=== PATIENT | male | born 1950 | race Caucasian/White ===

== ENCOUNTER 2018-07-22 13:08 | Outpatient (CLI) | payer MEDICARE, SELFPAY | END 2018-07-22 13:28 | PROVIDERS: PCP Specialist/Technologist Athletic Trainer; Visit Provider Specialist/Technologist Athletic Trainer | DX: N39.0 Urinary tract infection, site not specified (principal) | CPT/HCPCS: 87086 ==

== ENCOUNTER 2018-08-03 11:40 | Outpatient (CLI) | payer MEDICARE, SELFPAY ==
--- NOTE | 2018-08-03 10:57 | DI.US_ITS ---
SYMPTOM/DIAGNOSIS: LT LEG SWELLING, M79.89, OSSEOUS METASTASIS, C79.51 LEFT LOWER EXTREMITY ULTRASOUND: The deep veins of the left lower extremity show normal compression, augmentation and color flow. No evidence of a deep venous thrombus is identified. The visualized portions of the common femoral vein are patent. No focal fluid collection is seen in the soft tissues. IMPRESSION: No evidence of a left lower extremity deep venous thrombus.
== END 2018-08-03 12:00 ==
PROVIDERS: PCP Specialist/Technologist Athletic Trainer; Visit Provider Radiology Radiation Oncology
DX: R22.42 Localized swelling, mass and lump, left lower limb (principal); M79.89 Other specified soft tissue disorders; C79.51 Secondary malignant neoplasm of bone
CPT/HCPCS: 93971

== ENCOUNTER 2019-01-22 19:39 | Emergency (ER) | payer MEDICARE, SELFPAY ==
[2019-01-22] VITALS (8 sets, daily range): BP systolic 135–183; BP diastolic 41–97; PULSE 68–95; RESP 13–24; O2SAT 91–95
--- NOTE | 2019-01-22 19:52 | DI.CT_ITS ---
SYMPTOM/DIAGNOSIS: RLQ ABD PAIN, NOTABLY TENDER ABDOMEN AND PELVIC CT: CT examination of the abdomen and pelvis was performed with intravenous infusion of 100 cc's of Omnipaque 350. Images obtained through the lung bases show multiple rounded intrapulmonary nodules which were not present on previous CT of 03/02/18 and the findings are highly suggestive of metastatic disease. Liver shows diffuse heterogeneous attenuation with marked nodularity of the contour, these findings were not present on the previous examination and may represent metastatic disease or cirrhosis. Previously noted L 5 vertebral body lesion again seen, grossly unchanged. A right superior pubic ramus lesion is new since the previous examination and measures up to about 4 cm. in diameter with marked bony destruction. Adrenals and kidneys are unremarkable. Pancreas appears intact. No biliary dilatation is seen. No gross bowel obstruction identified. No significant vascular abnormality is seen. CONCLUSION: 1. New intrapulmonary metastatic disease. 2. New bony metastasis of superior pubic ramus, old bony metastases are again noted. 3. Marked interval change in appearance of liver since 03/02/18, diffuse metastatic disease versus cirrhosis.
[2019-01-22] MEDS: Normal Saline 1,000 ML 1000 ML IV (20:08)
[2019-01-22 20:25] LABS: Abs Immature Grans 0.06 k/cumm (0.0-0.09); Absolute Basophil Count 0.03 k/cumm (0.0-0.2); Absolute Eosinophil Count 0.12 k/cumm (0.0-0.7); Absolute Lymphocyte Count 1.17 k/cumm (1.2-3.4); Absolute Monocyte Count 1.29 k/cumm (0.11-0.7); Absolute Neutrophil Count 4.85 k/cumm (1.2-6.7); Basophils % 0.4; Eosinophils % 1.6; HCT 43.8 % (40.0-50.0); HGB 14.3 g/dL (13.5-17.5); Immature Grans % 0.8; Lymphocytes % 15.6; Mean Corp. HGB Concentration 32.6 g/dL (32.0-36.0); Mean Corpuscular Hemoglobin 31.3 pg (27.0-33.0); Mean Corpuscular Volume 95.8 fL (80-95); Mean Platelet Volume 13.1 fL (8.0-11.0); Monocytes % 17.2; Neutrophils % 64.4; Platelet Count 197 x1000/uL (130-400); RBC 4.57 m/cumm (4.50-6.00); RBC Distribution Width 14.4 % (11.8-14.1); White Blood Cell Count 7.52 k/cumm (4.4-10.8)
[2019-01-22 20:32] LABS: ALT 70 U/L (12-78); AST 203 U/L (15-37); Albumin 3.3 g/dL (3.4-5.0); Alkaline Phosphatase 328 U/L (46-116); Anion Gap 11.2 mmol/L (3-11); BUN 17 mg/dL (7-18); Bilirubin, Total 0.5 mg/dL (0.2-1.0); CO2 26.8 mmol/L (21.0-32.0); CREATININE 1.12 mg/dL (0.70-1.30); Calcium 9.9 mg/dL (8.5-10.1); Chloride 98 mmol/L (98-107); Glucose 190 mg/dL (70-100); Lipase 118 U/L (73-393); Potassium 4.5 mmol/L (3.5-5.1); Sodium 136 mmol/L (136-145); Total Protein 8.5 g/dL (6.4-8.2)
[2019-01-22 20:35] LABS: Troponin I 0.03 ng/mL (0.00-0.06)
--- NOTE | 2019-01-22 20:45 | W.ED.GENAD ---
Discharge Plan Disposition Patient Disposition: HOME Condition: Good Discharge Details Chief Complaint: Abd Prob Clinical Impression: Bone mass, Metastasis, Bony pelvic pain Primary Care Provider: Mike Covington ED Provider: Cristobal Rodríguez Home Meds and New Rx's Prescriptions: New lidocaine [Lidoderm] 1 PATCH patch 1 patch Topical Q24H Qty: 4 RF: 0 cephalexin [Keflex] 500 mg capsule 500 mg PO BID Qty: 14 RF: 0 No Action metformin 500 MG tablet 500 mg PO BID RF: 0 fish oil-dha-epa 1 EACH capsule 1 ea PO DAILY RF: 0 allopurinol 100 MG tablet 100 mg PO BID RF: 0 albuterol sulfate [ProAir HFA] 8.5 GM HFA aerosol inhaler 2 puff Inhalation Q4H PRN RF: 0 aspirin 325 MG tablet 325 mg PO DAILY RF: 0 insulin detemir U-100 [Levemir U-100 Insulin] 100 UNIT/ML solution 40 units SQ HS RF: 0 lisinopril 20 mg Tablet 20 mg PO DAILY RF: 0 tamsulosin [Flomax] 0.4 mg Capsule 0.4 mg PO DAILY RF: 0 oxycodone 7.5 mg Tablet, Oral Only 7.5 mg PO DAILY PRNRF: 0 Discharge Instructions Additional Instructions: Contact your oncologist immediately on Thursday morning to discuss the findings of the new pelvic mass. Please use the Lidoderm patch as directed. If you notice any worsening of your symptoms, or any new symptoms such as vomiting, diarrhea, fever, chills, shortness of breath, chest pain, numbness, weakness, or fainting , please return immediately to the emergency department for reevaluation. Please follow up with your primary care provider as soon as possible for reassessment and reevaluation. As always, it was a pleasure participating in your medical care today. Referrals: Mike Covington [Primary Care Provider] - Medical Decision Making This is a 68-year-old male with a past medical history of gout, diabetes, hypertension, who chronically takes oxycodone, who presents today for evaluation of right lower quadrant pain. The patient states that the pain has been going on for the last 8 weeks, however it notably worsened in the last few days. He denies any nausea, vomiting or diarrhea. No concerning red flags of hematuria, frequency, hematochezia or hematemesis. Physical exam demonstrates notable reproducible tenderness in the right lower quadrant. Concerning for appendicitis versus other acute abdominal pathology. We will get a CT scan to evaluate for acute process. Patient is refusing anything for pain at this time. Hernia is also on the differential. I will also preform a laboratory workup in addition to imaging analysis. 10:17 p.m. Patient's laboratory workup has returned and is relatively benign. No significant white count, bandemia, or other abnormality. Electrolytes are well within normal limits. Alk phos is elevated at 328 which is higher than normal for the patient, AST is also elevated at 203, bilirubin is normal though. Lipase normal. Urinalysis does show questionable urinary tract infection. We will give Keflex for treatment of this. Troponin is within normal limits, may continues to deny any chest pain shortness of breath. CT scan results done, initial CT was negative for any acute process in the lower pelvic region, however review with radiologist did bring the discovery of right pubic rami mass, which appears to be acute. Reevaluation does confirm that this is the location of the patient's pain on repeat physical exam. The patient states that he does have a history of tumors in the spine in the past, however these were treated with radiation there were no metastases on reevaluation. This would be an acute component. Additionally there appear to be multiple new metastases in the lungs. The patient remaining hemodynamically stable, and pain well controlled, I do feel that he can be safely discharged home however he needs close prompt follow-up with oncology. He does have the number for his oncologist, and over in addition to this we will set up a referral for review by the oncology team. I discussed the importance of prompt follow-up, as well as red flags which to return the patient understands. I have extensively reviewed the treatment plan and discharge instructions with the patient and their family. I have addressed all patient concerns at this time. The patient and family was made aware of what symptoms to monitor for that would warrant a return to the emergency department. Discussed the plan with the patient and family, they demonstrate verbal understanding and agreement with our assessment and plan at this time. EKG 19: 57 Rate 81, VT 222, QTc 476, QRS 154, sinus rhythm with a first-degree AV block and a right bundle branch block with a left axis bifascicular block. 1 mm of elevation in V3 4, no ST depressions, inverted T wave in V1 V2, all consistent with right bundle branch block. TECHNIQUE: Imaging protocol: Axial computed tomography images of the abdomen and pelvis with intravenous contrast. Coronal and sagittal reformatted images were created and reviewed. COMPARISON: CT CHEST ABD PELVIS WITH CONTRAST 03/02/2018 10:35 AM FINDINGS: Limitations: The examination is technically less than ideal due to patient body habitus. Lower thorax: The heart demonstrates mild diffuse enlargement.There has been a TAVR. There is calcification of the mitral valve annulus.There are coronary artery calcifications. There are new noncalcified pulmonary nodules in the lung bases. The largest measures approximately 10 mm. ABDOMEN: Liver: The liver demonstrates a diffusely nodular contour and is heterogeneous. Gallbladder and bile ducts: There is enhancement of the gallbladder wall with no gallbladder distention, pericholecystic stranding or calcified gallstones.There is no evidence of biliary ductal dilation. Pancreas: Normal. No ductal dilation. Spleen: Normal. No splenomegaly. Adrenals: Normal. No mass. Kidneys and ureters: Normal. No hydronephrosis. Stomach and bowel: There is no evidence of intestinal obstruction. No bowel wall thickening.There is no evidence of diverticulitis. Appendix: The appendix is not visualized, however, there are no pericecal inflammatory changes. PELVIS: Bladder: Unremarkable as visualized. Reproductive: Unremarkable as visualized. ABDOMEN and PELVIS: Intraperitoneal space: There is no free intraperitoneal air. There is no evidence of focal rimenhancing encapsulated fluid collections to suggest drainable abscess formation. Bones/joints: There is redemonstration of a destructive lesion in the L5 vertebral body and left pedicle. There is now a nondisplaced fracture through the right pedicle which may be pathologic. There is an old compression fracture with methacrylate of L3. There is a compression fracture of the superior endplate of L1 which is new in comparison to 2018 but is of indeterminate age. Soft tissues: Unremarkable. Vasculature: TheThe aorta is normal in caliber.The vasculature demonstrates diffuse marked atherosclerotic calcification. There are bilateral iliac artery stents. Lymph nodes: Normal. No enlarged lymph nodes. IMPRESSION: 1. The appendix is not visualized, however, there are no pericecal inflammatory changes. 2. There is no evidence of bowel obstruction, abscess or free air. 3. The liver demonstrates a diffusely nodular contour and is heterogeneous. Differential considerations include cirrhosis and metastatic disease. 4. There are new noncalcified pulmonary nodules in the lung bases strongly suggestive of metastatic disease. 5. Enhancement of the gallbladder wall with no additional findings to suggest acute cholecystitis. This is of uncertain etiology and clinical significance and could be related to adjacent hepatic disease. If there is clinical concern for cholecystitis, a gallbladder ultrasound or DISIDA scan is recommended. 6. Redemonstration of a destructive lesion in the L5 vertebral body and left pedicle. There is now a nondisplaced fracture through the right pedicle which may be pathologic. Interval development of a compression fracture of the superior endplate of L1 which is of indeterminate age. Remainder of non-emergent findings as described above. Thank you for allowing us to participate in the care of your patient. Dictated and Authenticated by: Ivana Moran MD HPI General Date/Time Provider Initiated Documentation: 01/22/19 19:52. HPI Narrative: This is a 68-year-old male with a past medical history of gout, asthma, aortic stenosis, diabetes, who presents today for right lower quadrant pain and nausea for the last 8 weeks. The patient states that symptoms are aching and nature, with no radiation to any other part of his abdomen. Worse when he stands upright. Improved by nothing. He has no associated diarrhea, or vomiting. He has been eating and drinking well. He denies any relation to food. He does have a history of an umbilical hernia that was surgically repaired years ago in [place]. He denies any hematochezia, hematemesis, melena, acholic stool, fever, hematuria, increased urinary frequency, chills, chest pain, shortness of breath. He has no other complaints at this time. No other modifying factors. He does have follow-up with his primary care provider in the next few weeks, but nothing soon. Related Data Home Medications Medication Instructions Recorded Confirmed fish oil-dha-epa 1 ea PO DAILY NS 06/28/15 03/11/18 metformin 500 mg PO BID tab-cap NS 06/28/15 03/11/18 insulin detemir U-100 [Levemir 40 units SQ HS 08/02/15 03/11/18 U-100 Insulin] albuterol sulfate [Proair Hfa] 2 puff INHALATION Q4H PRN inhaler 05/20/18 allopurinol 100 mg PO BID tab-cap 05/20/18 aspirin 325 mg PO DAILY tab-cap 05/24/18 cephalexin [Keflex] 500 mg PO BID #14 cap 01/22/19 lidocaine [Lidoderm] 1 patch TOPICAL Q24H #4 patch 01/22/19 lisinopril 20 mg PO DAILY 01/22/19 01/22/19 oxycodone 7.5 mg PO DAILY PRN 01/22/19 01/22/19 tamsulosin [Flomax] 0.4 mg PO DAILY 01/22/19 01/22/19 Previous Rx's Medication Instructions Recorded cephalexin [Keflex] 500 mg PO BID #14 cap 01/22/19 lidocaine [Lidoderm] 1 patch TOPICAL Q24H #4 patch 01/22/19 Allergies Allergy/AdvReac Type Severity Reaction Status Date / Time codeine Allergy Mild bladder Unverified 01/22/19 19:51 problems morphine Allergy Mild Hives Unverified 01/22/19 19:51 atenolol Allergy Unknown Unverified 01/22/19 19:51 diltiazem Allergy Unknown Unverified 01/22/19 19:51 General Stated Complaint: Abd Prob DANIELLE: 3 PFSH Medical History Aortic stenosis Aortoiliac occlusive disease Atherosclerosis of arteries of extremities BPH (benign prostatic hyperplasia) Bilateral leg edema Bradycardia CAD (coronary artery disease) COPD (chronic obstructive pulmonary disease) Conjunctival granuloma Diabetes mellitus Fatty liver disease, nonalcoholic GERD (gastroesophageal reflux disease) Gout HTN (hypertension) History of gallbladder disease History of seizures History of tobacco abuse Hyperlipidemia Incipient cataract Low back pain Lumbar epidural mass Male erectile dysfunction Metastasis to spinal column Metastatic bone cancer Neurogenic claudication STEPHEN (obstructive sleep apnea) PAF (paroxysmal atrial fibrillation) PVD (peripheral vascular disease) Pinguecula Proptosis S/P TAVR (transcatheter aortic valve replacement) Sleep disturbance Spinal stenosis Syncope and collapse Tremor Surgical History H/O hernia repair (Chronic) Hx of CABG (Chronic) TVAR Social History Smoking/Tobacco Use Status: Current every day Tobacco Type: smokeless tobacco Alcohol Intake: current Alcohol Intake frequency: holidays/special occasions only Alcohol type: wine Drug use: Never Do you feel safe in your relationship?: Yes Exam Narrative Exam Narrative: 1.Const: Well-nourished, Well-developed, appearing stated age 2.Eyes: PERRL, no conjunctival injection, and symmetrical lids. 3.ENT: Atraumatic external nose and ears. Moist MM. Neck: Symmetric, trachea midline, No thyromegaly. 4.CVS: +S1/S2, No murmurs or gallops. Peripheral pulses 2+ and equal in all extremities. Brisk capillary refill in all extremities. 5.RESP: Unlabored respiratory effort. Clear to auscultation bilaterally. No wheezes rales or rhonchi 6.GI: Soft, notable tenderness in the right lower quadrant. No pain in the right upper, left upper left lower. No guarding or rebound aside for mild rebound in the right lower quadrant. No evidence of notable herniation. 7.MSK: Normocephalic/Atraumatic, Extremities w/o deformity or ttp No cyanosis or clubbing, Normal movement of all extremities including the lower extremities below the point of pain. 8.Skin: Warm, Dry. No rashes or lesions. 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 Sensation grossly intact, no focal neurologic deficits. 10.Psych: (AAO) x3. Appropriate mood and affect Course Vital Signs Pulse 95 H 01/22/19 19:45 Respiratory Rate 24 01/22/19 19:45 Blood Pressure 183/66 H 01/22/19 19:45 Pulse Oximetry 95 01/22/19 19:45 Pulse 95 H 01/22/19 19:45 Respiratory Rate 24 01/22/19 19:45 Respiratory Effort 01/22/19 19:48 Blood Pressure 183/66 H 01/22/19 19:45 Pulse Oximetry 95 01/22/19 19:45 Pain Level 10 01/22/19 19:45 Lab/Test Results Lab/Test Results: Laboratory Tests Range/Units 01/22/19 01/22/19 01/22/19 20:00 20:00 20:00 WBC (4.4-10.8) k/cumm 7.52 RBC (4.50-6.00) m/cumm 4.57 Hgb (13.5-17.5) g/dL 14.3 Hct (40.0-50.0) % 43.8 MCV (80-95) fL 95.8 H MCH (27.0-33.0) pg 31.3 MCHC (32.0-36.0) g/dL 32.6 RDW (11.8-14.1) % 14.4 H Plt Count (130-400) x1000/uL 197 MPV (8.0-11.0) fL 13.1 H Immature Gran % 0.8 Neutrophils % 64.4 Lymphocytes % 15.6 Monocytes % 17.2 Eosinophils % 1.6 Basophils % 0.4 Absolute Neutrophils (1.2-6.7) k/cumm 4.85 Absolute Lymphocytes (1.2-3.4) k/cumm 1.17 L Absolute Monocytes (0.11-0.7) k/cumm 1.29 H Absolute Eosinophils (0.0-0.7) k/cumm 0.12 Absolute Basophils (0.0-0.2) k/cumm 0.03 Sodium (136-145) mmol/L 136 Potassium (3.5-5.1) mmol/L 4.5 Chloride (98-107) mmol/L 98 Carbon Dioxide (21.0-32.0) mmol/L 26.8 Anion Gap (3-11) mmol/L 11.2 H BUN (7-18) mg/dL 17 Creatinine (0.70-1.30) mg/dL 1.12 Estimated GFR/1.73 m2 (mL/min/1.73m2) >= 60.00 Glucose (70-100) mg/dL 190 H Calcium (8.5-10.1) mg/dL 9.9 Total Bilirubin (0.2-1.0) mg/dL 0.5 AST (15-37) U/L 203 H ALT (12-78) U/L 70 Alkaline Phosphatase (46-116) U/L 328 H Troponin I (0.00-0.06) ng/mL 0.03 Total Protein (6.4-8.2) g/dL 8.5 H Albumin (3.4-5.0) g/dL 3.3 L Lipase (73-393) U/L 118
[2019-01-22] MEDS: Omnipaque 350 MG/ML 100 ML BTL IJ (21:05)
[2019-01-22 21:21] LABS: Bilirubin Negative (Negative); Blood Negative (Negative); Clarity Clear; Glucose Negative (Negative); Ketones Trace mg/dL (Negative); Leukocyte Esterase Small (Negative); Nitrite Negative (Negative); Specific Gravity 1.025 (1.005-1.025); Urobilinogen 0.2 EU/dL (Up TO 0.2); pH 5.5 (5-8)
--- NOTE | 2019-01-22 21:40 | DI.VRAD_ITS ---
Addendum created by Ivana Moran MD on 01/22/2019 9:54:49 PM EDT The examination was reviewed with Dr. Rodríguez 01/22/2019 9:53 PM EDT. The patient states that he has had no workup for metastatic disease and no known primary tumor. The following should have been included in the body and impression of the report: There is a lytic lesion in the right superior pubic ramus with a soft tissue component measuring approximately 4 cm maximal short axis dimension by 5.6 cm long axis dimension (79/4). The appearance would be consistent with metastatic disease. The gallbladder wall is not thickened but demonstrates mild enhancement. This could be related to liver disease. The appearance of the liver is new in comparison to 2018 and could represent metastatic disease or cirrhosis. There are new multiple pulmonary nodules consistent with metastases. Initial report created on 01/22/2019 9:39:33 PM EDT EXAM: CT Abdomen and Pelvis With Contrast EXAM DATE/TIME: 01/22/2019 7:54 PM CLINICAL HISTORY: 68 years old, male; Pain; Abdominal pain; Localized; Right lower quadrant (rlq); Patient HX: Rlq abdominal pain for 8 weeks, notable tender. History of bone metastases. TECHNIQUE: Imaging protocol: Axial computed tomography images of the abdomen and pelvis with intravenous contrast. Coronal and sagittal reformatted images were created and reviewed. COMPARISON: CT CHEST ABD PELVIS WITH CONTRAST 03/02/2018 10:35 AM FINDINGS: Limitations: The examination is technically less than ideal due to patient body habitus. Lower thorax: The heart demonstrates mild diffuse enlargement.There has been a TAVR. There is calcification of the mitral valve annulus.There are coronary artery calcifications. There are new noncalcified pulmonary nodules in the lung bases. The largest measures approximately 10 mm. ABDOMEN: Liver: The liver demonstrates a diffusely nodular contour and is heterogeneous. Gallbladder and bile ducts: There is enhancement of the gallbladder wall with no gallbladder distention, pericholecystic stranding or calcified gallstones.There is no evidence of biliary ductal dilation. Pancreas: Normal. No ductal dilation. Spleen: Normal. No splenomegaly. Adrenals: Normal. No mass. Kidneys and ureters: Normal. No hydronephrosis. Stomach and bowel: There is no evidence of intestinal obstruction. No bowel wall thickening.There is no evidence of diverticulitis. Appendix: The appendix is not visualized, however, there are no pericecal inflammatory changes. PELVIS: Bladder: Unremarkable as visualized. Reproductive: Unremarkable as visualized. ABDOMEN and PELVIS: Intraperitoneal space: There is no free intraperitoneal air. There is no evidence of focal rim-enhancing encapsulated fluid collections to suggest drainable abscess formation. Bones/joints: There is redemonstration of a destructive lesion in the L5 vertebral body and left pedicle. There is now a nondisplaced fracture through the right pedicle which may be pathologic. There is an old compression fracture with methacrylate of L3. There is a compression fracture of the superior endplate of L1 which is new in comparison to 2018 but is of indeterminate age. Soft tissues: Unremarkable. Vasculature: TheThe aorta is normal in caliber.The vasculature demonstrates diffuse marked atherosclerotic calcification. There are bilateral iliac artery stents. Lymph nodes: Normal. No enlarged lymph nodes. IMPRESSION: 1. The appendix is not visualized, however, there are no pericecal inflammatory changes. 2. There is no evidence of bowel obstruction, abscess or free air. 3. The liver demonstrates a diffusely nodular contour and is heterogeneous. Differential considerations include cirrhosis and metastatic disease. 4. There are new noncalcified pulmonary nodules in the lung bases strongly suggestive of metastatic disease. 5. Enhancement of the gallbladder wall with no additional findings to suggest acute cholecystitis. This is of uncertain etiology and clinical significance and could be related to adjacent hepatic disease. If there is clinical concern for cholecystitis, a gallbladder ultrasound or DISIDA scan is recommended. 6. Redemonstration of a destructive lesion in the L5 vertebral body and left pedicle. There is now a nondisplaced fracture through the right pedicle which may be pathologic. Interval development of a compression fracture of the superior endplate of L1 which is of indeterminate age. Remainder of non-emergent findings as described above. Dictated and Authenticated by: Ivana Moran MD. Ordering:LATANYA Jain MD
[2019-01-22 21:42] LABS: Bacteria Negative HPF (Negative); C & S Indicated? Yes; Casts Negative LPF (Negative); Crystals Negative HPF (Negative); Epithelial Cells Negative HPF (Negative); Mucus Negative (Negative); Other Cells Negative (Negative); RBC Negative (0-2); WBC >50 HPF (0-5)
[2019-01-22] MEDS: Lidocaine 5% Patch 1 PATCH TP (22:11)
[2019-01-22] MEDS: Cephalexin 500 MG CAP PO (22:27)
--- NOTE | 2019-01-24 08:35 | CMPROGNOTE_ITS ---
Care Management Progress Note 01/24-Dr. Rodríguez requested assistance with a PCP (Adria) f/u as soon as possible for new cancer mass, also needs oncology. Referral faxed to [facility] requesting they set up oncology appt and to schedule f/u in their office as soon as possible.
== END 2019-01-22 22:24 | disposition home or self-care (01) ==
PROVIDERS: Emergency Provider Student in an Organized Health Care Education/Training Program; PCP Specialist/Technologist Athletic Trainer
DX: R10.2 Pelvic and perineal pain (principal); C79.51 Secondary malignant neoplasm of bone; I10 Essential (primary) hypertension; E11.9 Type 2 diabetes mellitus without complications
CPT/HCPCS: 36415; 80053; 83690; 93005; 96360; 96361; 99285; 74177; 81003; 81015; 84484; 85025; 87086; 93010; J3490